=== PATIENT | female | born 1985 | race Caucasian/White ===

== ENCOUNTER 2019-01-02 18:30 | Emergency (ER) | payer OTHER ==
[2019-01-02 18:44] VITALS: BP 132/68
[2019-01-02 20:11] LABS: Bilirubin,Urine NEG (Negative); Blood,Urine NEG (Negative); Color,Urine Yellow (Yellow); Mucus,Urine FEW /HPF; Protein,Urine <15 mg/dL mg/dL (Negative); Urobilinogen,Urine < 2.0 mg/dL (<2.0); WBC,Urine < 1.0 /HPF (0.0-6.0)
--- NOTE | 2019-01-02 20:46 | Emergency Department Report ---
ED Dysuria HPI - HPI Chief Complaint: Urogenital-Female Stated Complaint: PREG COMPLICATIONS Time Seen by Provider: 01/02/19 20:38 Duration: Today Severity: None Symptoms: Dysuria: No, Frequency: No, Suprapubic Pain: No, Flank Pain: No, Fever: No, Hematuria: No, Abdominal Pain: No, Previous UTI's: No Other History: PT HERE WITH PARTNER. SHE IS PREGANT AND HER VAG DISCHARGE IS THINNER THAN NORMAL. NOT CONCERNED FOR STI. NO VAG BLEED. NO BACK OR ABD PAIN. VSS. HAS HAD OB CARE AND HAS APPNT IN AM. [id number] ED Review of Systems ROS: Stated complaint: PREG COMPLICATIONS Other details as noted in HPI Comment: All other systems reviewed and negative ED Past Medical Hx - Past Medical History Previous Medical History?: No - Surgical History Past Surgical History?: No - Social History Smoking Status: Never Smoker Substance Use Type: None Dysuria Exam - Exam General: Vital signs noted. No distress. Alert and acting appropriately. Exam: Yes Moist Mucous Membranes, No CVA Tenderness, No Abdominal Tenderness, No Rigidity or Guarding Labs: Lab Results 01/02/19 01/02/19 Range/Units 18:56 19:45 HCG, Quant [id number] H (0-4) mIU/mL Urine Color Yellow (Yellow) Urine Turbidity Clear (Clear) Urine pH 6.0 (5.0-7.0) Ur Specific Sheldon 1.014 (1.003-1.030) Urine Protein <15 mg/dl (Negative) mg/dL Urine Glucose (UA) Neg (Negative) mg/dL Urine Ketones Tr (Negative) mg/dL Urine Blood Neg (Negative) Urine Nitrite Neg (Negative) Urine Bilirubin Neg (Negative) Urine Urobilinogen < 2.0 (<2.0) mg/dL Ur Leukocyte Esterase Neg (Negative) Urine WBC (Auto) < 1.0 (0.0-6.0) /HPF Urine RBC (Auto) 1.0 (0.0-6.0) /HPF U Epithel Cells (Auto) 1.0 (0-13.0) /HPF Urine Mucus Few /HPF ED Course Vital Signs 01/02/19 18:38 Temperature 97.7 F Pulse Rate 102 H Respiratory 18 Rate Blood Pressure 132/68 O2 Sat by Pulse 100 Oximetry ED Medical Decision Making - Radiology Data Radiology results: report reviewed, image reviewed - Medical Decision Making Labs 01/02/19 01/02/19 01/02/19 18:56 19:45 22:00 HCG, Quant [id number] H Urine Color Yellow Urine Turbidity Clear Urine pH 6.0 Ur Specific Sheldon 1.014 Urine Protein <15 mg/dl Urine Glucose (UA) Neg Urine Ketones Tr Urine Blood Neg Urine Nitrite Neg Urine Bilirubin Neg Urine Urobilinogen < 2.0 Ur Leukocyte Esterase Neg Urine WBC (Auto) < 1.0 Urine RBC (Auto) 1.0 U Epithel Cells (Auto) 1.0 Urine Mucus Few Blood Type O POSITIVE Ord Rhogam Gestat Weeks Rh pos Vital Signs 01/02/19 18:38 Temperature 97.7 F Pulse Rate 102 H Respiratory 18 Rate Blood Pressure 132/68 O2 Sat by Pulse 100 Oximetry NO VAG BLEED NO ABD PAIN RH POS UA NOTED HCG NOTED VSS EDUCATED ON VAG DC OF DC HOME WITH FOLLOW UP WITH OBGYN IN 48 HOURS. Critical care attestation.: If time is entered above; I have spent that time in minutes in the direct care of this critically ill patient, excluding procedure time. ED Disposition Clinical Impression: Disposition: DC-01 TO HOME OR SELFCARE Is pt being admited?: No Does the pt Need Aspirin: No Condition: Stable Instructions: Threatened Miscarriage (ED) Additional Instructions: PELVIC REST FOLLOW UP OBGYN ON THURSDAY REST HYDRATE WELL MOTRIN OR TYLENOL FOR PAIN EXPECT HEAVY PERIOD [facility]: [facility] Care Provider[facility] - 3-5 Days MICHAEL BAILON MD [Staff Physician] - 3-5 Days Time of Disposition: 00:11
--- NOTE | 2019-01-02 23:43 | Ultrasound Report ---
OBSTETRIC ULTRASOUND INDICATION: Vaginal discharge COMPARISON: No prior relevant imaging studies are available for comparison. TECHNIQUE: Transabdominal imaging was performed. FINDINGS: Single viable intrauterine is identified. lie is currently breech. heart rate i s 152bpm. measurements are as follows: Biparietal diameter 3.5 cm, 16 weeks 5 days Head circumference 12.9 cm, 16 weeks 4 days Abdominal circumference 10.0 cm, 16 weeks 0 days Femur length 2.3 cm, 16 weeks 5 days Amniotic fluid index is within normal limits. No placental abnormalities are seen. Cervix measures 3 .9 cm, closed. CONCLUSION: Single viable intrauterine currently in breechposition, measuring 16 weeks 4 days. Amniotic fluid index is within normal limits. No abnormalities are seen. Signer Name: Angel Cosby MD Signed: 01/02/2019 11:38 PM Workstation Name: [id number]
== END 2019-01-03 00:20 | disposition home or self-care (01) ==
LOC: ED 18:30
DX: O23.22 Infections of urethra in pregnancy, second trimester (principal); Z3A.16 16 weeks gestation of pregnancy
CPT/HCPCS: 36415; 76805; 81001; 84702; 86900; 86901; 99284